=== PATIENT | female | born 1975 | race Caucasian/White ===

== ENCOUNTER → 2019-09-06 13:49 | Outpatient (REF) | payer BC, SELFPAY | LOC: ANHLAB 13:49 | PROVIDERS: PCP Family Medicine; Visit Provider Nurse Practitioner | DX: D49.2 Neoplasm of unspecified behavior of bone, soft tissue, and skin (principal) | CPT/HCPCS: 88305 ==

== ENCOUNTER → 2019-09-14 14:27 | Outpatient (REF) | payer BC, SELFPAY | LOC: ANHLAB 14:27 | PROVIDERS: PCP Family Medicine; Visit Provider Nurse Practitioner | DX: D49.2 Neoplasm of unspecified behavior of bone, soft tissue, and skin (principal) | CPT/HCPCS: 88305 ==

== ENCOUNTER 2021-07-26 01:36 | Day surgery (SDC) | payer BC, SELFPAY ==
[2021-07-16 15:00] VITALS: BMI 22.4
--- NOTE | 2021-07-25 09:03 | WPDANESEPPF ---
Anes - Initial Pre Proc Eval Procedure: Operation Date: 07/26/21 08:30 Proposed Procedures p Screening Colonoscopy - Toño Bey MD Date/Time: 07/25/21 09:03 Surgeon: Toño Bey MD Pre Op Diagnosis: neoplasm screening Patient Data Age: 46 Gender: F Height: 1.7 m Weight: 65 kg Allergies Allergy/AdvReac Type Severity Reaction Status Date / Time erythromycin base AdvReac Mild Nausea Verified 07/26/21 07:41 Home Medications Medication Instructions Recorded Confirmed Type cetirizine [Zyrtec] 10 mg PO DAILY PRN 07/16/21 07/16/21 History Patient hx anesthesia problems: none Family hx anesthesia problems: none Results Review: All pre-operative results and documents have been reviewed as part of the pre-operative evaluation. [facility] Past Medical History Medical History (Updated 04/23/21 @ 14:53 by Fernandez Peacock MD) Acute bronchospasm Family history of lung cancer Pneumonia of right lower lobe due to Streptococcus pneumoniae Surgical History Surgical History (Updated 07/25/21 @ 09:03 by Vidal Rush DO) History of appendectomy History of breast augmentation 2003 Family History Family History Father Hypertension Family history of elevated blood lipids Family history of coronary artery disease Grandparent Family history of lung cancer Mother Skin cancer Other Family history of allergic disorder Social History Social History Smoking packs per day: 0.5 Smoking cigarettes per day: 10.0 Years smoked: 12 Smoking pack-years: 6.00 Smoking status: Former smoker Tobacco type: cigarettes Smoking end date: 05/19/98 Alcohol intake: current Alcohol use details: 4 per month Living arrangements: with family Spiritual care concerns: No Anes - Eval Final PreProcedure Day of Procedure 07/25/21 09:03 Patient weight: normal Heart: regular rate and rhythm Lungs: clear to auscultation and normal air movement Airway: Mallampati scale class II Neurological: alert and oriented Last oral intake: >/= 8 hours ASA classification: III Emergent: no Anesthetic plan: proceed Anesthesia type and monitoring: general GIVS and standard monitoring Results Review: All pre-operative results and documents have been reviewed as part of the pre-operative evaluation. Informed Consent: The patient's anesthetic plan and its attendant risks and benefits were discussed with the patient/family/POA. Questions were solicited and answers provided to the satisfaction of the patient/family/POA.
--- NOTE | 2021-07-25 15:25 | PM.HPGS ---
History of Present Illness History of Present Illness Consent: Risks, benefits, and alternatives have been discussed and questions answered. Patient agrees to proceed with procedure. Chief complaint: neoplasm screening Narrative: Keily Acevedo is a 46 year old female referred for colon cancer screening. Review of Systems Review of Systems: All systems reviewed & are unremarkable except as noted in HPI and below PMFSH Past Medical History Medical History Acute bronchospasm Family history of lung cancer Pneumonia of right lower lobe due to Streptococcus pneumoniae Surgical History Surgical History History of appendectomy History of breast augmentation 2003 Family History Family History Father Hypertension Family history of elevated blood lipids Family history of coronary artery disease Grandparent Family history of lung cancer Mother Skin cancer Other Family history of allergic disorder Social History Social History Smoking packs per day: 0.5 Smoking cigarettes per day: 10.0 Years smoked: 12 Smoking pack-years: 6.00 Smoking status: Former smoker Tobacco type: cigarettes Smoking end date: 05/19/98 Alcohol intake: current Alcohol use details: 4 per month Living arrangements: with family Spiritual care concerns: No Meds Home Medications and Allergies Home Medications Medication Instructions Recorded Confirmed Type cetirizine [Zyrtec] 10 mg PO DAILY PRN 07/16/21 07/26/21 History Allergies Allergy/AdvReac Type Severity Reaction Status Date / Time erythromycin base AdvReac Mild Nausea Verified 07/26/21 07:41 Exam Const: General: alert Orientation/consciousness: patient oriented x3 Resp: Auscultation: clear to auscultation bilaterally Cardio: Rhythm: regular rhythm GI: GI Palp: Yes Soft to palpation and No Tenderness to palpation present (GI) Neuro: General: patient oriented x3 Assessment and Plan Assessment and plan (1) Colon cancer screening: Code(s): Z12.11 - Encounter for screening for malignant neoplasm of colon Status: Acute Assessment and Plan: Colonoscopy with possible biopsy or polypectomy or cautery or injection of substances.
[2021-07-26 07:42] VITALS: BP 101/78; PULSE 90; RESP 16; TEMP 36.5; O2SAT 100
[2021-07-26] MEDS: LACTATED RINGERS 1,000 ML 150 ML IV CONT (07:44)
--- NOTE | 2021-07-26 08:13 | PM.HPGS ---
History of Present Illness History of Present Illness Consent: Risks, benefits, and alternatives have been discussed and questions answered. Patient agrees to proceed with procedure. Chief complaint: neoplasm screening Narrative: Keily Acevedo is a 46 year old female referred for colon cancer screening. She is not aware of any family history of colon cancer Review of Systems Review of Systems: All systems reviewed & are unremarkable except as noted in HPI and below PMFSH Past Medical History Medical History Acute bronchospasm Family history of lung cancer Pneumonia of right lower lobe due to Streptococcus pneumoniae Surgical History Surgical History History of appendectomy History of breast augmentation 2003 Family History Family History Father Hypertension Family history of elevated blood lipids Family history of coronary artery disease Grandparent Family history of lung cancer Mother Skin cancer Other Family history of allergic disorder Social History Social History Smoking packs per day: 0.5 Smoking cigarettes per day: 10.0 Years smoked: 12 Smoking pack-years: 6.00 Smoking status: Former smoker Tobacco type: cigarettes Smoking end date: 05/19/98 Alcohol intake: current Alcohol use details: 4 per month Living arrangements: with family Spiritual care concerns: No Meds Home Medications and Allergies Home Medications Medication Instructions Recorded Confirmed Type cetirizine [Zyrtec] 10 mg PO DAILY PRN 07/16/21 07/26/21 History Allergies Allergy/AdvReac Type Severity Reaction Status Date / Time erythromycin base AdvReac Mild Nausea Verified 07/26/21 07:41 Vital Signs Vital Signs - 24 hr 07/26/21 07:42 Temperature 36.5 C Pulse Rate 90 Respiratory Rate 16 Blood Pressure 101/78 Pulse Oximetry 100
[2021-07-26 08:42] VITALS: BP 80/52; PULSE 75; RESP 18; O2SAT 99
[2021-07-26 08:52] VITALS: BP 91/58; PULSE 66; RESP 19; O2SAT 100
[2021-07-26 09:02] VITALS: BP 101/70; PULSE 65; RESP 14; O2SAT 100
== END 2021-07-26 09:17 | disposition home or self-care (01) ==
PROVIDERS: PCP Family Medicine; Visit Provider Internal Medicine Gastroenterology
PROC: 0DJD8ZZ Inspection of Lower Intestinal Tract, Via Natural or Artificial Opening Endoscopic (ICD-10-PCS; CPT 45378; principal; 2021-07-26 08:30)
DX: Z12.11 Encounter for screening for malignant neoplasm of colon (principal); Z80.1 Family history of malignant neoplasm of trachea, bronchus and lung; Z87.891 Personal history of nicotine dependence
CPT/HCPCS: 45378; J7120